=== PATIENT | female | born 2000 | race Hispanic/Latino ===

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

== ENCOUNTER 2022-06-07 20:58 | Emergency (ER) | payer OTHER ==
[~2022-06-07] VITALS: Ht 172.7 cm; Wt 68.0 kg
[2022-06-07] MEDS ORDERED: BENZONATATE 100 MG CAP PO STA (21:08)
[2022-06-07] MEDS ORDERED: BENZONATATE100 MG PO (22:54)
== END 2022-06-07 23:01 | disposition home or self-care (01) ==
LOC: ER 21:00
DX: R50.9 Fever, unspecified (principal); B34.9 Viral infection, unspecified; R06.00 Dyspnea, unspecified; R05.9 Cough, unspecified; Z20.822 Contact with and (suspected) exposure to COVID-19
CPT/HCPCS: 71046; 87400; 99283; U0002